=== PATIENT | female | born 1995 | race African-American/Black ===

== ENCOUNTER 2020-06-30 14:27 | Emergency (ER) | payer OTHER ==
[~2020-06-30] VITALS: Ht 154.9 cm; Wt 57.1 kg
[2020-06-30 15:46] LABS: URINE BILIRUBIN NEGATIVE (Negative); URINE BLOOD 1+ (Negative); URINE CLARITY SL CLOUDY; URINE COLOR YELLOW; URINE GLUCOSE-RANDOM* NEGATIVE (Negative); URINE KETONES 1+ (Negative); URINE LEUKOCYTES-REFLEX TRACE (Negative); URINE NITRITE-REFLEX NEGATIVE (Negative); URINE PROTEIN (DIPSTICK) NEGATIVE (Negative); URINE SPECIFIC GRAVITY >= 1.030 (1.005-1.035); URINE UROBILINOGEN 0.2 E.U./dl (0.2-1.0)
[2020-06-30 15:55] LABS: CASTS None Seen /LPF (None Seen); CRYSTALS None Seen /LPF (None Seen); SQUAMOUS 4-10 Moderate /LPF (0-3); URINE WBC-REFLEX >25 Many /HPF (0-5)
[2020-06-30 15:56] LABS: BACTERIA-REFLEX 1-9 Few /HPF (None Seen); URINE RBC 0-2 Rare /HPF (0-2)
[2020-06-30] MEDS ORDERED: TESSALON PERLE100 MG PO (17:58)
[2020-06-30] MEDS ORDERED: FLAGYL500 M1 PO (17:58)
[2020-06-30] MEDS ORDERED: ALBUTEROL2.5 MG/31 INH (17:58)
[2020-06-30] MEDS ORDERED: PREDNISONE 20 M20 MG PO (17:58)
[2020-06-30 18:18] VITALS: BP 124/52
== END 2020-06-30 18:18 | disposition home or self-care (01) ==
LOC: ER 14:27
PROVIDERS: Physician Assistant
DX: J45.909 Unspecified asthma, uncomplicated (principal); A59.09 Other urogenital trichomoniasis; Z20.2 Contact with and (suspected) exposure to infections with a predominantly sexual mode of transmission; Z20.828 Contact with and (suspected) exposure to other viral communicable diseases